=== PATIENT | female | born 1990 | race Caucasian/White ===

== ENCOUNTER → 2016-06-04 | Outpatient (CLI) | payer BC ==
--- NOTE | 2016-06-04 09:51 | RAD ---
Indication lump left breast. The patient reports a lump at the 11 to 12:00 position of the left breast. 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 The patient denies a family history of breast malignancy. Corresponding to the palpable abnormality at the 11:30 position of the left breast, 4 cm from the nipple, is a well-defined slightly hypoechoic wider than tall 1.7 cm mass. It likely reflects a fibroadenoma. Follow-up imaging establishing stability or biopsy advised. An additional hypoechoic 8mm mass compatible with a cyst is additionally noted at the 11:30 position of the breast 1 cm from the nipple. Because of the patient's age and lack of family history no mammogram was performed. 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 See above discussion
== END | disposition home or self-care (01) ==
LOC: US 09:01
PROVIDERS: ATTEND Nurse Practitioner Family
DX: N63 Unspecified lump in breast (principal)
CPT/HCPCS: 76641